=== PATIENT | female | born 1980 | race Caucasian/White ===

== ENCOUNTER 2017-05-01 | Outpatient (CLI) | payer BC ==
[~2017-05-01] VITALS: Ht 165.1 cm; Wt 88.2 kg
[~2017-05-01] MED LIST: EFFEXOR XR75 MG/CAP PO; PREDNISONE10 MG PO
[2017-05-01 00:16] VITALS: BP 166/92; PULSE 74; TEMP 97.4
[2017-05-01] MEDS ORDERED: ZOLOFT 50MG50 MG PO (00:21)
[2017-05-01] MEDS ORDERED: PRENATAL (00:21)
[2017-05-01] MEDS ORDERED: PRILOSEC 20MG20 MG PO (00:22)
[2017-05-01 00:30] VITALS: BP 142/90; PULSE 74; TEMP 97.4
[2017-05-01 01:00] VITALS: BP 137/82; PULSE 85
[2017-05-01 02:00] VITALS: BP 127/81; PULSE 81
[2017-05-01 02:30] VITALS: BP 128/79; PULSE 85; TEMP 97.3
== END 2017-05-01 02:45 | disposition home or self-care (01) ==
LOC: LDRO
DX: O62.9 Abnormality of forces of labor, unspecified (principal); Z3A.38 38 weeks gestation of pregnancy

== ENCOUNTER 2017-05-07 13:18 | Inpatient (IN) | payer BC ==
[2017-05-07] VITALS (25 sets, daily range): BP systolic 126–153; BP diastolic 65–95; PULSE 72–93; TEMP 98–98.5
[~2017-05-07] VITALS: Ht 165.1 cm; Wt 88.6 kg
[~2017-05-07 13:18] MED LIST changes: +PRENATAL; +PRILOSEC 20MG20 MG PO; +ZOLOFT 50MG50 MG PO
[2017-05-07 15:02] LABS: BASO % 0.3 % (0.0-2.0); EOS # 0.1 (0.0-0.7); EOS % 0.5 % (0-4.0); GRAN # 10.1 (1.4-6.5); GRAN % 79.7 % (42.2-75.2); HEMOGLOBIN 12.1 g/dl (12.5-16.0); LYMPH # 1.4 (1.2-3.4); LYMPH % 11.2 % (20.0-51.0); MEAN CELL VOLUME 91 fl (80.0-100.0); MEAN CORPUSCULAR HEMOGLOBIN 31 pg (27.0-31.0); MEAN CORPUSCULAR HGB CONC 34 g/dl (33.0-37.0); MEAN PLATELET VOLUME 9.3 fl (7.4-10.4); MONO % 7.5 % (1.7-9.3); PLATELET COUNT 197 K/mm3 (130-400); RED BLOOD COUNT 3.91 M/mm3 (4.10-5.30); REDCELL DISTRIBUTION WIDTH-CV 13.7 % (11.5-14.5); WHITE BLOOD COUNT 12.6 K/mm3 (4.8-10.8)
[2017-05-07 15:04] LABS: HEMATOCRIT 35.4 % (37.0-47.0)
[2017-05-08 01:47] VITALS: BP 134/78; PULSE 79; TEMP 98.3
[2017-05-08 05:05] VITALS: BP 129/83; PULSE 72; TEMP 97.5
[2017-05-08 08:00] VITALS: BP 135/83; PULSE 66; TEMP 97.4
[2017-05-08 08:18] LABS: BASO % 0.3 % (0.0-2.0); EOS % 0.3 % (0-4.0); GRAN % 82.4 % (42.2-75.2); LYMPH # 1.5 (1.2-3.4); LYMPH % 9.6 % (20.0-51.0); MEAN CELL VOLUME 91 fl (80.0-100.0); MEAN CORPUSCULAR HEMOGLOBIN 31 pg (27.0-31.0); MEAN CORPUSCULAR HGB CONC 34 g/dl (33.0-37.0); MEAN PLATELET VOLUME 9.4 fl (7.4-10.4); MONO # 1.1 (0.1-0.6); MONO % 6.8 % (1.7-9.3); PLATELET COUNT 188 K/mm3 (130-400); REDCELL DISTRIBUTION WIDTH-CV 13.4 % (11.5-14.5); WHITE BLOOD COUNT 15.8 K/mm3 (4.8-10.8)
[2017-05-08 08:19] LABS: HEMATOCRIT 35.6 % (37.0-47.0)
[2017-05-08 13:00] VITALS: BP 126/85; PULSE 71; TEMP 97.8
[2017-05-08 16:30] VITALS: BP 136/86; PULSE 70; TEMP 98.4
[2017-05-08 21:00] VITALS: BP 124/79; PULSE 74; TEMP 97.7
[2017-05-09 09:30] VITALS: BP 131/89; PULSE 71; TEMP 97.4
[2017-05-09] MEDS ORDERED: IBU600 MG PO (10:08)
== END 2017-05-09 13:55 | disposition home or self-care (01) | DRG 774 ==
LOC: LDRO 13:18 → OB 14:20 → LDR 14:20 → OB 05-08 00:16
PROVIDERS: Obstetrics & Gynecology
PROC: 10E0XZZ Delivery of Products of Conception, External Approach (ICD-10-PCS; principal; 2017-05-07)
PROC: 0HQ9XZZ Repair Perineum Skin, External Approach (ICD-10-PCS; 2017-05-07)
DX: O99.824 Streptococcus B carrier state complicating childbirth (principal); O72.1 Other immediate postpartum hemorrhage; O09.523 Supervision of elderly multigravida, third trimester; O70.0 First degree perineal laceration during delivery; Z37.0 Single live birth; Z3A.39 39 weeks gestation of pregnancy
CPT/HCPCS: J2210; J2540; J2590; J7120